=== PATIENT | male | born 1990 | race Hispanic/Latino ===

== ENCOUNTER 2024-07-31 14:41 | Emergency (ER) | payer BC, OTHER ==
[~2024-07-31] VITALS: Ht 175.3 cm; Wt 81.6 kg
--- NOTE | 2024-07-31 14:57 | ERN ---
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 Skin avulsion noted to middle and distal phalanx. Last tetanus shot is unknown no primary care doctor. No active bleeding at this time. Allergies: Coded Allergies: No Known Allergies (Unverified Allergy, Unknown, 07/31/24) Home Meds Active Scripts Mupirocin (Bactroban 2% Oint) 2 % Oint, 1 APPL TP TID for 5 Days, #15 GM 0 Refills apply to affected area(s) Prov:BLADIMIR DE JESUS NP 07/31/24 Acetaminophen with Codeine (Acetaminophen-Cod #3 Tablet) 300 Mg-30 Mg Tablet, 1 TAB PO Q4H PRN for MODERATE PAIN, #15 TAB 0 Refills Prov:BLADIMIR DE JESUS NP 07/31/24 Cephalexin (Cephalexin) 500 Mg Tablet, 1 TAB PO QID for 10 Days, #40 TAB 0 Refills Prov:BLADIMIR DE JESUS NP 07/31/24 Past Medical History Past Medical History: Asthma, Hypertension Surgical History: None PSYCH History: no pertinent psych hx RN Note Reviewed/Agreed w/PFSH: Yes Review of System Dictation CONSTITUTIONAL: Negative except for HPI HEAD/FACE: Negative except for HPI EENT: Negative except for HPI RESPIRATORY: Negative except for HPI GASTROINTESTINAL/ABDOMINAL: Negative except for HPI GENITOURINARY: Negative except for HPI MUSCULOSKELETAL: Negative except for HPI left 3rd finger crush injury with skin avulsion INTEGUMENTARY: Negative except for HPI NEUROLOGICAL/PSYCH: Negative except for HPI HEMATOLOGIC/LYMPHATIC: Negative except for HPI All Systems Negative, Except as noted above. 13 point review of systems assessed and all negative except for above. Initial Vital Sign VS Vital Signs Date Time Temp Pulse Resp B/P (MAP) Pulse Ox O2 Delivery O2 Flow Rate FiO2 07/31/24 14:42 98.1 87 20 161/101 99 07/31/24 15:00 Room Air* 0 21 Physical Exam Dictation Vital Signs reviewed General Appearance: Alert, oriented x 3, moderate acute distress, well developed, nourished. Head and Face: non-traumatic. Eyes: PERRL, pink conjunctivas, eyelid no trauma, anterior chamber with arcus senilis. Ears: Pinnas intact and no signs of trauma or erythema ear canals clear and no discharge TM no erythema Nose: No discharge, no bleeding. Oropharynx: Mouth normal, tongue pink, pharynx clear,no erythema, tonsils no exudates, no abscesses noted, mucous membrane moist Neck: Supple, non-tender, no thyromegaly, no masses, no JVD, no bruits Breast:Deferred Chest:No tenderness, no crepitus, no paradoxical movement, no retractions Lungs:Clear, well-ventilated, symmetric, no rales, no wheezing, no rhonchi, no stridor, good breath sounds bilaterally Heart: Regular rate, regular rhythm, no murmur, no gallops Vascular: no peripheral edema, Abdomen: Soft, positive bowel sounds, nondistended, no guarding, nontender, no rebound, no masses no hepatomegaly, no splenomegaly, no Santiago's sign, no hernias. Rectal: Deferred Genital: Deferred Neurological: Normal speech, motor function intact, sensory function intact Musculoskeletal: Neck nontender, full range of motion, back nontender, full range of motion, Extremities: Skin avulsion to distal and medial left 3rd finger palmar aspect. No active bleed Skin: Color pink, dry, no turgor, no rash, no lacerations, no abrasions, no contusions. Lymphatic: Deferred Results (Laboratory/Radiology) Labs Reviewed?: Yes ED Course ED Course Orders Procedure Category Date Status Time Acetaminophen With PHA 07/31/24 Complete Codeine (Tylenol-Code 15:00 Tetanus,Diphtheria PHA 07/31/24 Complete Tox [Adult] (Diphther 15:00 Neomy PHA 07/31/24 Complete Sulf/Bacitra/Polymyxin 15:00 Cephalexin 500 Mg PHA 07/31/24 Complete Capsule (Keflex 500 Mg 15:00 Hand 3+Vws Lt RAD 07/31/24 Resulted 14:54 Lidocaine Hcl 1% 20ml PHA 07/31/24 Complete Vial (Lidocaine Hc 16:30 Current Medications Medications (Trade) Dose Ordered Sig/Lupillo Route PRN Reason Start Time Stop Time Status Last Admin Dose Admin Acetaminophen/ Codeine Phosphate (TYLenol-coDEINE TAB) 2 tab ONCE ONCE PO 07/31/24 15:00 07/31/24 15:01 DC 07/31/24 15:50 Cephalexin (Keflex 500 MG CAPS) 1,000 mg ONCE ONCE PO 07/31/24 15:00 07/31/24 15:01 DC 07/31/24 15:49 Lidocaine HCl (Lidocaine HCl 1% 20ml Vial) 10 ml ONCE ONCE INJ 07/31/24 16:30 07/31/24 16:31 DC 07/31/24 17:48 Neomycin/ Polymyxin/ Bacitracin (Triple Antibiotic Ointment) 1 appl ONCE ONCE TP 07/31/24 15:00 07/31/24 15:01 DC 07/31/24 15:49 Tetanus/ Diphtheria Toxoids Adsorbed (DiphthERIA-teTANUS TOXOID [ADULT]/ DECAVAC) 0.5 ml ONCE ONCE IM 07/31/24 15:00 07/31/24 15:01 DC 07/31/24 15:52 Vital Signs Date Time Temp Pulse Resp B/P (MAP) Pulse Ox O2 Delivery O2 Flow Rate FiO2 07/31/24 17:48 98.1 80 20 147/81 99 Room Air* 0 21 07/31/24 15:00 98.1 85 20 155/87 99 Room Air* 0 21 07/31/24 14:42 98.1 87 20 161/101 99 HISTORY: Breast injury to third finger COMPARISON: None TECHNIQUE: 4 images of left hand were obtained. FINDINGS: The study is limited due to poor positioning. There is no acute displaced fracture or dislocation. Nondisplaced fracture cannot be excluded. IMPRESSION: 1. Findings as described above. Medical Decision Making MDM MEDICAL DISCHARGE MAKING BASED ON X-RAY OF LEFT HAND WITH UPDATE OF TETANUS AND ANTIBIOTIC LOADING LACERATION/FLAP WAS CLOSED SUTURED PATIENT TOLERATED WELL MOTHER AND PATIENT WERE MADE AWARE NO SWIMMING NO FISHING KEEP COVERED AT ALL TIMES UNTIL SUTURES ARE REMOVED. NO WORK WITH LEFT HAND UNTIL SUTURES ARE OUT BY HIS PRIMARY CARE DOCTOR. TAKE ANTIBIOTICS DIRECTED UNTIL GONE. Procedure Procedure Dictation: 1720/PROCEDURE EXPLAINED TO PATIENT HE AGREED TO PROCEED BASE OF LEFT 3RD PROXIMAL PHALANX WAS PREPPED STERILELY 3 ML OF 1% LIDOCAINE PLAIN USED FOR DIGITAL BLOCK 4.5 CM FLAP/LACERATION WAS CLEANSED WITH WOUND CLEANSER USED 10 4-0 PROLENE SIMPLE INTERRUPTED SUTURES TO CLOSE SINGLE-LAYER CLOSURE TISSUE WAS VERY SWOLLEN AND MOTHER WAS AT BEDSIDE AND SHOWN THAT I WAS UNABLE TO APPROXIMATE SKIN COMPLETELY DUE TO CONTUSION OF TISSUE PATIENT TOLERATED WELL SHE WAS MADE AWARE THAT THE REMAINDER WE WILL HEAL BY SECONDARY INTENTION. DX & DISP Disposition: Discharge Departure Impression: Primary Impression: Crushing injury of left hand and finger Additional Impression: Laceration of finger, middle Condition: Stable Scripts Mupirocin (Bactroban 2% Oint) 2 % Oint 1 APPL TP TID for 5 Days, #15 GM 0 Refills apply to affected area(s) Prov: BLADIMIR DE JESUS NP 07/31/24 Acetaminophen with Codeine (Acetaminophen-Cod #3 Tablet) 300 Mg-30 Mg Tablet 1 TAB PO Q4H PRN for MODERATE PAIN, #15 TAB 0 Refills Prov: BLADIMIR DE JESUS NP 07/31/24 Cephalexin (Cephalexin) 500 Mg Tablet 1 TAB PO QID for 10 Days, #40 TAB 0 Refills Prov: BLADIMIR DE JESUS NP 07/31/24 Additional Instructions: Follow-up with primary care provider in 1 to 2 days. Take medications as directed here in the emergency room. Okay to continue home medications unless otherwise discussed during your visit in the emergency room today. Return to your nearest emergency room if symptoms worsen or if there is no improvement. Call 911 if you need immediate assistance. Take Tylenol or Motrin [id number] as needed and if no contraindications are present. Increase oral hydration. A wound culture or urine culture was ordered here in the emergency room department please follow-up with primary care provider and advise them to get repeat ports from our facility. If you had any Neil wrap/splints that were applied here, please do not remove them until you see your primary care or specialty. Keep laceration repair clean and dry. Apply triple antibiotic ointment3 times a day for five days raise with dressing. Sutures out in 10-14 days by your primary care doctor. No work with left hand until sutures are removed and cleared by your doctor. Time of Disposition: 17:36 I have reviewed the case, and I agree with, Diagnosis and Plan ATTESTATION BY PHYSICIAN I PERFORMED THE SUBSTANTIVE PORTION OF THE VISIT. I HAVE REVIEWED AND PERSONALLY MADE AND APPROVED THE MANAGEMENT PLAN THAT IS DOCUMENTED IN THE NOTE BY MYSELF FOR THE A PP. I ACKNOWLEDGED FOR RESPONSIBILITY FOR THE PATIENT'S MANAGEMENT PLAN. BLADIMIR DE JESUS NP Jul 31, 2024 14:57 SOLOMON BERGMAN MD Aug 03, 2024 08:14
[2024-07-31] MEDS: NEOMY SULF/BACITRA/POLYMYXIN B 1 EACH PACKET TP ONE (15:49)
[2024-07-31] MEDS: cePHALexin 500 MG CAPSULE PO ONE (15:49)
[2024-07-31] MEDS: acetaMINOPHEN WITH coDEINE 1 TAB TAB PO ONE (15:50)
[2024-07-31] MEDS: teTANUS/diphthERIA TOXOID [ADULT] 0.5 ML VIAL IM ONE (15:52)
--- NOTE | 2024-07-31 16:13 | HMCIMG ---
-HAND 3+VWS LT HISTORY: Breast injury to third finger COMPARISON: None TECHNIQUE: 4 images of left hand were obtained. FINDINGS: The study is limited due to poor positioning. There is no acute displaced fracture or dislocation. Nondisplaced fracture cannot be excluded. IMPRESSION: 1. Findings as described above.
[2024-07-31] MEDS ORDERED: CEPH500T PO (17:38)
[2024-07-31] MEDS ORDERED: MUPI22O TP (17:38)
[2024-07-31] MEDS ORDERED: ACET-2079 PO (17:38)
[2024-07-31 17:48] VITALS: BP 147/81; PULSE 80; RESP 20; TEMP 98.1; O2SAT 99
[2024-07-31] MEDS: LIDOCAINE HCL 1% 20 ML VIAL INJ ONE (17:48)
== END 2024-07-31 18:03 | disposition home or self-care (01) ==
LOC: EDH 14:41
DX: S61.213A Laceration without foreign body of left middle finger without damage to nail, initial encounter (principal); S67.193A Crushing injury of left middle finger, initial encounter; I10 Essential (primary) hypertension; J45.909 Unspecified asthma, uncomplicated; W31.89XA Contact with other specified machinery, initial encounter; Y93.89 Activity, other specified; Y92.89 Other specified places as the place of occurrence of the external cause; Y99.0 Civilian activity done for income or pay
CPT/HCPCS: 12002; 73130; 90471; 90714; 99284